=== PATIENT | female | born 1950 | race Caucasian/White ===

== ENCOUNTER 2022-05-04 05:47 | Inpatient (IN) | payer MEDICARE ==
[2022-05-04] MEDS ORDERED: FENTANYL 50 MCG/ML 1 ML VIAL ONE (06:12)
[2022-05-04 07:02] LABS: #Eosinphils 0.1 thou/uL (0.0-0.7); #Lymphocytes 2.1 thou/uL (1.20-3.40); #Monocytes 0.6 thou/uL (0.11-0.59); #Neutrophils 14.4 thou/uL (1.40-6.50); %Basophils 0.1 % (0.0-1.0); %Eosinophils 0.4 % (0.0-10.0); %Lymphocytes 12.3 % (21.0-51.0); %Monocytes 3.6 % (0.0-10.0); %Neutrophils 83.6 % (42.0-75.0); Hemoglobin 9.4 g/dL (12.0-16.0); Mean Corpuscular HGB CONC 31.8 g/dL (32.0-36.0); Mean Corpuscular Hemoglobin 29.8 pg (27.0-31.0); Mean Platelet Volume 9.1 fL (7.4-10.4); Platelet Count 171 10x3/uL (130-400); RBC Distribution Width 12.1 % (11.5-14.5); Red Blood Cell (RBC) Count 3.15 mill/uL (4.20-5.40); White Blood Cell (WBC) Count 17.2 10x3/uL (4.8-10.8)
[2022-05-04] MEDS ORDERED: Morphine 4 MG/ML VIAL ONE (07:04)
[2022-05-04 07:19] LABS: ALT (SGPT) Less than 7 U/L (8-55); AST (SGOT) 9 U/L (5-34); Alkaline Phosphatase 57 U/L (40-110); Anion Gap 12 mmol/L (10-20); BUN (Urea Nitrogen) 15 mg/dL (9.8-20.1); Bilirubin, Total 0.3 mg/dL (0.2-1.2); Calc. Creatinine Clearance 0 mL/min (70-130); Calcium 7.9 mg/dL (7.8-10.44); Carbon Dioxide 20 mmol/L (23-31); Chloride 107 mmol/L (98-107); Estimated GFR 74; Globulin 1.5 g/dL (2.4-3.5); Glucose 287 mg/dL (83-110); Magnesium 1.7 mg/dL (1.6-2.6); Potassium 3.5 mmol/L (3.5-5.1); Protein, Total 4.5 g/dL (5.8-8.1); Sodium 135 mmol/L (136-145)
[2022-05-04] MEDS ORDERED: Midazolam HCl 5 mg/5 ml Vial ONE (07:31)
[2022-05-04] MEDS ORDERED: fentaNYL PF 100 MCG/2 ML SYRINGE ONE (07:32)
[2022-05-04] MEDS ORDERED: Dexmedetomidine 200 MCG/2 ML VIAL ONE (07:33)
[2022-05-04] MEDS ORDERED: Calcium Chloride 1 GM/10 ML Abboject SYRINGE ONE ×2 (07:39→08:04)
[2022-05-04] MEDS ORDERED: niCARdipine 25 MG/10 ML VIAL ONE (07:39)
[2022-05-04] MEDS ORDERED: Rocuronium Bromide 50 MG/5 ML VIAL ONE (07:39)
[2022-05-04] MEDS ORDERED: CEFAZOLIN 1 GM VIAL ONE (07:45)
[2022-05-04] MEDS ORDERED: Heparin 10,000 UNITS/ 10 ML VIAL ONE (08:00)
[2022-05-04] MEDS ORDERED: Heparin 5,000 UNITS/ML VIAL ONE (08:00)
[2022-05-04] MEDS ORDERED: Sodium Bicarb 50 MEQ/50 ML Abboject 8.4% SYRINGE ONE (08:04)
[2022-05-04] MEDS ORDERED: Norepinephrine 4 MG/4 ML VIAL ONE (08:04)
[2022-05-04] MEDS ORDERED: EPINEPHrine 1 MG/ML AMP ONE (08:04)
[2022-05-04] MEDS ORDERED: Protamine Sulfate 250 MG/25 ML VIAL ONE (08:04)
[2022-05-04] MEDS ORDERED: Rocuronium Bromide 10 MG/ML (10ML VIAL) ONE (08:04)
[2022-05-04 08:53] LABS: INR-International Normal Ratio 1.2; PTT 31.3 sec (22.9-36.1); Prothrombin Time 15.8 sec (12.0-14.7)
[2022-05-04 10:13] LABS: SARS-CoV-2 NAA Rapid Test Not Detected (NotDetected)
[2022-05-04] MEDS ORDERED: hydrALAZINE 20 MG/ML VIAL SLOW IVP PRN (10:57)
[2022-05-04] MEDS ORDERED: NOREPINEPHRINE 8 MG/250 ML-D5W 250 ML IVPB PRN (10:57)
[2022-05-04] MEDS ORDERED: Mag-Al 1200 mg/1200 mg/30 ML UDCUP PO PRN (10:57)
[2022-05-04] MEDS ORDERED: Bisacodyl 5 MG TAB PO PRN (10:57)
[2022-05-04] MEDS ORDERED: Guaifenesin DM 100-10/5 ML UDCUP PO PRN (10:57)
[2022-05-04] MEDS ORDERED: Ventilator Sedation Protocol 1 EACH FS SCH (10:57)
[2022-05-04] MEDS ORDERED: Hetastarch 6% 500 ML 500 ML IVPB PRN (10:57)
[2022-05-04] MEDS ORDERED: Magnesium 2 GM/50 ML(in water) 2 GM in Premix Bag 1 BAG IVPB SCH (10:57)
[2022-05-04] MEDS ORDERED: Potassium Chloride 20 MEQ/100 ML PREMIX BAG IVPB PRN (10:57)
[2022-05-04] MEDS ORDERED: Fentanyl 100 MCG/2 ML VIAL SLOW IVP PRN ×2 (10:57)
[2022-05-04] MEDS ORDERED: Nitroglycerin 50 MG/250 ML BOT 250 ML IVPB PRN (10:57)
[2022-05-04] MEDS ORDERED: Bisacodyl 10 MG SUPP PR PRN (10:57)
[2022-05-04 11:05] LABS: Actual Bicarbonate (HCO3a) 18.1 mEq/L (22-28); Base Excess (BEa) -10.2 mEq/L (-2.0 to +3.0); CO2 Tension 49.4 mmHg (35.0-45.0); Calcium, Ionized (arterial) 1.34 mmol/L (1.12-1.30); Carboxyhemoglobin (COHb) 0.7 gm% (0.0-3.0); Hemoglobin (Hb) 13.7 g/dL (12.0-16.0); O2 Tension (PaO2), arterial 130.1 mmHg (> 70.0); Potassium - ABG Lab 4.52 mmol/L (3.70-5.30)
[2022-05-04] MEDS ORDERED: Morphine 4 MG/ML VIAL SLOW IVP PRN ×2 (11:46→12:00)
[2022-05-04 11:49] LABS: Mean Corpuscular HGB CONC 31.4 g/dL (32.0-36.0); Mean Corpuscular Hemoglobin 27.9 pg (27.0-31.0); Mean Corpuscular Volume 89.1 fl (78.0-98.0); Mean Platelet Volume 9.8 fL (7.4-10.4); Platelet Count 83 10x3/uL (130-400); RBC Distribution Width 14.1 % (11.5-14.5); Red Blood Cell (RBC) Count 4.65 mill/uL (4.20-5.40); White Blood Cell (WBC) Count 24.1 10x3/uL (4.8-10.8)
[2022-05-04 11:51] LABS: INR-International Normal Ratio 1.5; Prothrombin Time 18.4 sec (12.0-14.7)
[2022-05-04 11:52] LABS: PTT 40.3 sec (22.9-36.1)
[2022-05-04] MEDS ORDERED: Midazolam HCl 2 mg/2 ml Vial SLOW IVP PRN (11:53)
[2022-05-04 11:56] LABS: Anion Gap 12 mmol/L (10-20); BUN (Urea Nitrogen) 15 mg/dL (9.8-20.1); Calc. Creatinine Clearance 70 mL/min (70-130); Carbon Dioxide 16 mmol/L (23-31); Chloride 115 mmol/L (98-107); Estimated GFR 80; Glucose 308 mg/dL (83-110); Potassium 4.9 mmol/L (3.5-5.1); Sodium 138 mmol/L (136-145)
[2022-05-04] MEDS: Sodium Chloride 0.9% 1,000 ML IV SCH ×2 (11:59→20:01)
[2022-05-04] MEDS ORDERED: DISCONTINUE PREVIOUS NARCOTIC PAIN MEDICATIONS AND BENZODIAZEPINES FS SCH (12:00)
[2022-05-04] MEDS ORDERED: Fentanyl BOLUS 250 ML IVPB PRN (12:00)
[2022-05-04] MEDS ORDERED: Propofol BOLUS 1,000 MG/100 ML VIAL IV PRN (12:00)
[2022-05-04] MEDS ORDERED: Insulin Regular 300 UNITS/3 ML VIAL SC PRN (12:00)
[2022-05-04] MEDS ORDERED: Dextrose 5% in Water 1,000 ML IV PRN (12:00)
[2022-05-04] MEDS ORDERED: Fentanyl CADD 100 ML IV SCH (12:00)
[2022-05-04] MEDS ORDERED: Dextrose 50% Abboject 50 ML SYRINGE IVP PRN (12:00)
[2022-05-04 12:37] LABS: Actual Bicarbonate (HCO3a) 17.3 mEq/L (22-28); Base Excess (BEa) -8.9 mEq/L (-2.0 to +3.0); CO2 Tension 38.2 mmHg (35.0-45.0); Calcium, Ionized (arterial) 1.29 mmol/L (1.12-1.30); Carboxyhemoglobin (COHb) 0.7 gm% (0.0-3.0); Hemoglobin (Hb) 13.6 g/dL (12.0-16.0); O2 Tension (PaO2), arterial 145.9 mmHg (> 70.0); Potassium - ABG Lab 4.64 mmol/L (3.70-5.30); pH, Arterial 7.27 (7.35-7.45)
[2022-05-04 12:41] LABS: Band 20 % (5-11); Lymphocytes 6 % (21-51); MDiff Complete? YES; Metamyelocyte 1 % (0-0); Monocytes 4 % (0-10); Myelocyte 1 % (0-0); Neutrophil 68 % (42-75); Platelet Morphology Comment Appears Decreased; Polychromasia SLIGHT = 2-3 cells (100X) (0-2/hpf)
[2022-05-04 16:40] LABS: Potassium 4.9 mmol/L (3.5-5.1)
[2022-05-04] MEDS: CEFAZOLIN 2 GM in Sodium Chloride 0.9% 100 ML IVPB SCH (17:27)
[2022-05-04 17:34] LABS: Puncture Site Arterial Line
[2022-05-04 17:35] LABS: Puncture Site Arterial Line; pH, Arterial 7.18 (7.35-7.45)
[2022-05-04] MEDS: Acetaminophen 325 MG TAB PO PRN ×2 (18:14→23:10)
[2022-05-04] MEDS: Famotidine/PF 20 mg/2ml Vial SLOW IVP SCH (20:00)
[2022-05-04] MEDS: Propofol 1,000 MG/100 ML VIAL IV PRN (20:00)
[2022-05-05] MEDS: CEFAZOLIN 2 GM in Sodium Chloride 0.9% 100 ML IVPB SCH ×2 (00:50→07:46)
[2022-05-05 04:27] LABS: #Lymphocytes 1.6 thou/uL (1.20-3.40); #Monocytes 0.9 thou/uL (0.11-0.59); #Neutrophils 12.5 thou/uL (1.40-6.50); %Basophils 0.1 % (0.0-1.0); %Eosinophils 0.1 % (0.0-10.0); %Lymphocytes 10.6 % (21.0-51.0); %Monocytes 5.9 % (0.0-10.0); %Neutrophils 83.3 % (42.0-75.0); Hemoglobin 9.8 g/dL (12.0-16.0); Mean Corpuscular HGB CONC 34.7 g/dL (32.0-36.0); Mean Corpuscular Hemoglobin 30.4 pg (27.0-31.0); Mean Corpuscular Volume 87.8 fl (78.0-98.0); Mean Platelet Volume 10.5 fL (7.4-10.4); Platelet Count 79 10x3/uL (130-400); Red Blood Cell (RBC) Count 3.21 mill/uL (4.20-5.40)
[2022-05-05 04:49] LABS: Anion Gap 9 mmol/L (10-20); BUN (Urea Nitrogen) 21 mg/dL (9.8-20.1); Calc. Creatinine Clearance 59 mL/min (70-130); Calcium 7.6 mg/dL (7.8-10.44); Carbon Dioxide 17 mmol/L (23-31); Chloride 118 mmol/L (98-107); Estimated GFR 65; Glucose 122 mg/dL (83-110); Potassium 4.1 mmol/L (3.5-5.1); Sodium 140 mmol/L (136-145)
[2022-05-05] MEDS: Propofol 1,000 MG/100 ML VIAL IV PRN (05:33)
[2022-05-05] MEDS: Sodium Chloride 0.9% 1,000 ML IV SCH ×2 (07:50→20:20)
[2022-05-05] MEDS: Magnesium 2 GM/50 ML(in water) 2 GM in Premix Bag 1 BAG IVPB SCH (08:28)
[2022-05-05] MEDS: Famotidine/PF 20 mg/2ml Vial SLOW IVP SCH ×2 (09:51→20:38)
[2022-05-05] MEDS ORDERED: FENTANYL 50 MCG/ML 1 ML VIAL SLOW IVP PRN (14:44)
[2022-05-05] MEDS: FENTANYL 50 MCG/ML 1 ML VIAL SLOW IVP PRN ×3 (15:12→22:21)
[2022-05-05 15:35] LABS: Hemoglobin 8.9 g/dL (12.0-16.0)
[2022-05-05] MEDS ORDERED: Lactated Ringer's 500 ML IV SCH (16:45)
[2022-05-05] MEDS: Acetaminophen 325 MG TAB PO PRN (20:38)
[2022-05-05] MEDS: Ondansetron PF 4 MG/2 ML Vial IVP PRN (23:35)
[2022-05-06] MEDS: FENTANYL 50 MCG/ML 1 ML VIAL SLOW IVP PRN ×6 (02:11→22:45)
[2022-05-06 04:42] LABS: #Lymphocytes 1.6 thou/uL (1.20-3.40); #Neutrophils 12.1 thou/uL (1.40-6.50); %Basophils 0.2 % (0.0-1.0); %Eosinophils 0.3 % (0.0-10.0); %Monocytes 6.7 % (0.0-10.0); %Neutrophils 81.8 % (42.0-75.0); Hemoglobin 7.4 g/dL (12.0-16.0); Mean Corpuscular HGB CONC 32.6 g/dL (32.0-36.0); Mean Corpuscular Hemoglobin 29.1 pg (27.0-31.0); Mean Corpuscular Volume 89.3 fl (78.0-98.0); Mean Platelet Volume 10.1 fL (7.4-10.4); Platelet Count 81 10x3/uL (130-400); RBC Distribution Width 14.7 % (11.5-14.5); Red Blood Cell (RBC) Count 2.55 mill/uL (4.20-5.40); White Blood Cell (WBC) Count 14.8 10x3/uL (4.8-10.8)
[2022-05-06 04:55] LABS: Anion Gap 8 mmol/L (10-20); BUN (Urea Nitrogen) 19 mg/dL (9.8-20.1); Calc. Creatinine Clearance 75 mL/min (70-130); Calcium 7.9 mg/dL (7.8-10.44); Carbon Dioxide 21 mmol/L (23-31); Chloride 116 mmol/L (98-107); Estimated GFR 83; Glucose 112 mg/dL (83-110); Potassium 3.9 mmol/L (3.5-5.1); Sodium 141 mmol/L (136-145)
[2022-05-06] MEDS: Sodium Chloride 0.9% 1,000 ML IV SCH ×3 (05:12→18:39)
[2022-05-06] MEDS: Magnesium 2 GM/50 ML(in water) 2 GM in Premix Bag 1 BAG IVPB SCH (08:28)
[2022-05-06] MEDS: Famotidine/PF 20 mg/2ml Vial SLOW IVP SCH ×2 (08:29→20:09)
[2022-05-07] MEDS: FENTANYL 50 MCG/ML 1 ML VIAL SLOW IVP PRN ×7 (01:53→20:50)
[2022-05-07 06:09] LABS: #Eosinphils 0.1 thou/uL (0.0-0.7); #Lymphocytes 1.4 thou/uL (1.20-3.40); #Monocytes 0.8 thou/uL (0.11-0.59); #Neutrophils 9.4 thou/uL (1.40-6.50); %Eosinophils 1.1 % (0.0-10.0); %Lymphocytes 11.9 % (21.0-51.0); %Monocytes 6.8 % (0.0-10.0); %Neutrophils 80.1 % (42.0-75.0); Hemoglobin 8.6 g/dL (12.0-16.0); Mean Corpuscular HGB CONC 32.7 g/dL (32.0-36.0); Mean Corpuscular Hemoglobin 29.7 pg (27.0-31.0); Mean Corpuscular Volume 90.7 fl (78.0-98.0); Mean Platelet Volume 9.3 fL (7.4-10.4); Platelet Count 113 10x3/uL (130-400); RBC Distribution Width 14.3 % (11.5-14.5); White Blood Cell (WBC) Count 11.7 10x3/uL (4.8-10.8)
[2022-05-07 06:18] LABS: Anion Gap 9 mmol/L (10-20); BUN (Urea Nitrogen) 16 mg/dL (9.8-20.1); Calc. Creatinine Clearance 83 mL/min (70-130); Carbon Dioxide 21 mmol/L (23-31); Chloride 113 mmol/L (98-107); Estimated GFR 92; Glucose 80 mg/dL (83-110); Potassium 3.9 mmol/L (3.5-5.1); Sodium 139 mmol/L (136-145)
[2022-05-07] MEDS: Famotidine/PF 20 mg/2ml Vial SLOW IVP SCH ×2 (08:35→20:50)
[2022-05-07 09:58] VITALS: BMI 27.7
[2022-05-07] MEDS: Ondansetron PF 4 MG/2 ML Vial IVP PRN ×2 (11:54→17:46)
[2022-05-07] MEDS: Sodium Chloride 0.9% 1,000 ML IV SCH (14:50)
[2022-05-08] MEDS: FENTANYL 50 MCG/ML 1 ML VIAL SLOW IVP PRN ×2 (00:10→04:28)
[2022-05-08 04:51] LABS: #Eosinphils 0.3 thou/uL (0.0-0.7); #Lymphocytes 1.9 thou/uL (1.20-3.40); #Neutrophils 6.6 thou/uL (1.40-6.50); %Basophils 0.2 % (0.0-1.0); %Eosinophils 3.1 % (0.0-10.0); %Lymphocytes 19.7 % (21.0-51.0); %Monocytes 9.8 % (0.0-10.0); %Neutrophils 67.2 % (42.0-75.0); Hemoglobin 9.1 g/dL (12.0-16.0); Mean Corpuscular HGB CONC 33.3 g/dL (32.0-36.0); Mean Corpuscular Hemoglobin 30.3 pg (27.0-31.0); Mean Corpuscular Volume 91.1 fl (78.0-98.0); Mean Platelet Volume 8.5 fL (7.4-10.4); Platelet Count 170 10x3/uL (130-400); RBC Distribution Width 14.1 % (11.5-14.5); Red Blood Cell (RBC) Count 2.98 mill/uL (4.20-5.40); White Blood Cell (WBC) Count 9.8 10x3/uL (4.8-10.8)
[2022-05-08] MEDS: Sodium Chloride 0.9% 1,000 ML IV SCH (05:00)
[2022-05-08] MEDS: Ondansetron PF 4 MG/2 ML Vial IVP PRN ×2 (05:00→17:53)
[2022-05-08 05:22] LABS: Anion Gap 13 mmol/L (10-20); BUN (Urea Nitrogen) 14 mg/dL (9.8-20.1); Calc. Creatinine Clearance 91 mL/min (70-130); Calcium 8.3 mg/dL (7.8-10.44); Carbon Dioxide 20 mmol/L (23-31); Chloride 111 mmol/L (98-107); Estimated GFR 94; Glucose 78 mg/dL (83-110); Potassium 3.7 mmol/L (3.5-5.1); Sodium 140 mmol/L (136-145)
[2022-05-08] MEDS: Metoprolol Tartrate 25 MG TAB PO SCH ×2 (09:10→19:47)
[2022-05-08] MEDS: Nicotine 21 MG PATCH TD SCH (09:11)
[2022-05-08] MEDS: Acetaminophen 325 MG TAB PO PRN (12:28)
[2022-05-09] MEDS: Acetaminophen 325 MG TAB PO PRN ×2 (05:59→18:07)
[2022-05-09] MEDS: Nicotine 21 MG PATCH TD SCH (08:19)
[2022-05-09] MEDS: Metoprolol Tartrate 25 MG TAB PO SCH ×2 (08:19→19:58)
[2022-05-09] MEDS: FENTANYL 50 MCG/ML 1 ML VIAL SLOW IVP PRN (21:08)
[2022-05-10] MEDS: Ondansetron PF 4 MG/2 ML Vial IVP PRN (06:34)
[2022-05-10] MEDS ORDERED: traMADol HCl 50 MG TAB PO PRN ×2 (07:29)
[2022-05-10 08:22] VITALS: TEMP 98.9
[2022-05-10] MEDS: Nicotine 21 MG PATCH TD SCH (08:42)
[2022-05-10] MEDS: Metoprolol Tartrate 25 MG TAB PO SCH (08:42)
[2022-05-10] MEDS ORDERED: Aspirin 81 mg Enteric Coated Tablet PO SCH (09:00)
[2022-05-10 17:12] VITALS: BP 124/75
== END 2022-05-10 15:45 | disposition swing bed (61) | DRG 270 ==
LOC: ERS 05:47 → SDC 08:02 → CCU 08:27 → IMCU/EMU 05-06 14:40
PROVIDERS: ADMIT Thoracic Surgery (Cardiothoracic Vascular Surgery); ATTEND Thoracic Surgery (Cardiothoracic Vascular Surgery)
PROC: 04V00DZ Restriction of Abdominal Aorta with Intraluminal Device, Open Approach (ICD-10-PCS; principal; 2022-05-04)
PROC: 02HV33Z Insertion of Infusion Device into Superior Vena Cava, Percutaneous Approach (ICD-10-PCS; 2022-05-04)
PROC: 30233N1 Transfusion of Nonautologous Red Blood Cells into Peripheral Vein, Percutaneous Approach (ICD-10-PCS; 2022-05-04)
PROC: 30233K1 Transfusion of Nonautologous Frozen Plasma into Peripheral Vein, Percutaneous Approach (ICD-10-PCS; 2022-05-04)
PROC: 0D9670Z Drainage of Stomach with Drainage Device, Via Natural or Artificial Opening (ICD-10-PCS; 2022-05-05)
DX: I71.30 Abdominal aortic aneurysm, ruptured, unspecified (principal); G93.41 Metabolic encephalopathy; J96.01 Acute respiratory failure with hypoxia; I97.121 Postprocedural cardiac arrest following other surgery; D62 Acute posthemorrhagic anemia; K91.89 Other postprocedural complications and disorders of digestive system; K56.7 Ileus, unspecified; E87.4 Mixed disorder of acid-base balance; D69.6 Thrombocytopenia, unspecified; Z20.822 Contact with and (suspected) exposure to COVID-19; F17.210 Nicotine dependence, cigarettes, uncomplicated; Z88.1 Allergy status to other antibiotic agents; Z90.710 Acquired absence of both cervix and uterus; Z90.49 Acquired absence of other specified parts of digestive tract; Z88.0 Allergy status to penicillin
CPT/HCPCS: 36415; 36416; 36430; 71045; 74174; 74176; 80048; 80053; 82805; 83735; 85025; 85610; 85730; 86850; 86900; 86901; 87040; 93005; 93010; 94002; 94003; 94150; 96374; 96375; C1751; C1776; C1889; J0171; J0360; J0690; J1644; J1815; J2250; J2270; J2405; J2704; J2720; J3010; J3475; J3490; J7050; J7120; P9016; P9045; P9048; S0028; U0002

== ENCOUNTER 2024-04-15 15:30 | Outpatient (CLI) | payer MEDICARE | END 2024-04-15 15:31 | disposition home or self-care (01) | LOC: ULT 15:30 | PROVIDERS: ATTEND Family Medicine | DX: R22.1 Localized swelling, mass and lump, neck (principal) | CPT/HCPCS: 76536 ==